=== PATIENT | female | born 1975 | race Caucasian/White ===

== ENCOUNTER 2017-12-29 04:05 | Emergency (ER) | payer OTHER ==
[~2017-12-29] VITALS: Ht 165.1 cm; Wt 57.0 kg
[2017-12-29 04:13] VITALS: BP 129/65; PULSE 101; RESP 18; TEMP 98.9; O2SAT 100
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
[2017-12-29] MEDS ORDERED: CYCL10TA PO (06:09)
[2017-12-29] MEDS ORDERED: IBUP-232 PO (06:09)
[2017-12-29] MEDS ORDERED: PERC5TAB12 PO (06:09)
[2017-12-29] MEDS ORDERED: KETOROLAC TROMETHAMINE 60 MG/2 ML (IM) VIAL IM ONE (06:15)
[2017-12-29] MEDS ORDERED: oxyCODONE/ACETAMINOPHEN 5 MG/325 MG TAB PO ONE (06:15)
[2017-12-29] MEDS ORDERED: ORPHENADRINE INJ 60 MG/2 ML AMP IM ONE (06:15)
[2017-12-29 06:23] VITALS: BP 108/65; PULSE 75; RESP 16; O2SAT 98
== END 2017-12-29 06:46 | disposition home or self-care (01) ==
LOC: PHED 04:05
DX: S29.019A Strain of muscle and tendon of unspecified wall of thorax, initial encounter (principal); S16.1XXA Strain of muscle, fascia and tendon at neck level, initial encounter; S39.012A Strain of muscle, fascia and tendon of lower back, initial encounter; S40.011A Contusion of right shoulder, initial encounter; V49.49XA Driver injured in collision with other motor vehicles in traffic accident, initial encounter; F17.210 Nicotine dependence, cigarettes, uncomplicated
CPT/HCPCS: 72050; 72072; 72100; 73030; 96372; 99284; J1885; J2360